=== PATIENT | male | born 1980 | race Caucasian/White ===

== ENCOUNTER → 2020-01-30 15:29 | Outpatient (BNVA) | payer BC, SELFPAY | PROVIDERS: PCP Internal Medicine; Referring Provider Internal Medicine; Visit Provider Surgery | DX: Z76.89 Persons encountering health services in other specified circumstances (principal) ==

== ENCOUNTER 2020-02-26 07:22 | Outpatient (REF) | payer BC, SELFPAY ==
[2020-02-26 08:35] LABS: MANUAL DIFF FLAG NO
[2020-02-26 08:38] LABS: Basophils Percent Auto 0.7 % (0-2); Eosinophils Absolute Auto 0.2 X10*3/uL (0.0-0.4); Eosinophils Percent Auto 3.3 % (0-4); Hematocrit 47.9 % (42-52); Imm Gran Abs Auto 0.01 X10*3/uL (0.00-0.03); Imm Gran Pct Auto 0.2 % (0.0-0.4); Lymphocytes Absolute Auto 2.3 X10*3/uL (1.2-4.9); Lymphocytes Percent Auto 37.5 % (20-40); Mean Corpuscular HGB Conc 33.4 g/dl (31.0-36.0); Mean Corpuscular Volume 83.7 fL (80-98); Mean Platelet Volume 9.9 fL (9.4-12.4); Monocytes Absolute Auto 0.4 X10*3/uL (0.1-1.2); Monocytes Percent Auto 7.1 % (2-11); Neutrophils Absolute Auto 3.1 X10*3/uL (2.0-8.3); Neutrophils Percent Auto 51.2 % (45-73); Platelet Count 161 X10*3/uL (160-400); Red Blood Count 5.72 X10*6/uL (4.60-5.80); Red Cell Distribution Width 13.7 % (11.0-16.0); White Blood Count 6.1 X10*3/uL (4.8-10.8)
[2020-02-26 09:06] LABS: Alanine Aminotransferase 19 U/L (0-40); Albumin Level 4.4 g/dL (3.5-5.0); Alkaline Phosphatase 66 U/L (39-117); Anion Gap 11 (12-20); Aspartate Amino Transferase 19 U/L (5-37); Bilirubin Total 0.7 mg/dL (0.0-1.0); Blood Urea Nitrogen 18 mg/dL (9-16); C Reactive Protein 0.17 mg/dL (< or = 0.50); Calcium 9.1 mg/dL (8.4-10.2); Carbon Dioxide 30 mmol/L (22-29); Chloride 104 mmol/L (96-108); Cholesterol 214 mg/dL; Estimated Glomerular Filt Rate > 60; Glucose Fasting 82 mg/dL (60-99); HDL Cholesterol 52 mg/dL; Iron 89 mcg/dL (45-160); LDL Cholesterol Calculated 149 mg/dl; Percent Iron Saturation 28 % (15-50); Potassium 4.2 mmol/l (3.3-5.1); Sodium 141 mmol/L (135-145); Total Iron Binding Capacity 315 mcg/dL (228-428); Total Protein 7.2 g/dL (6.5-8.0); Triglycerides 68 mg/dL; Unsaturated Iron Binding 226 ug/dL
[2020-02-26 09:19] LABS: Vitamin B12 318 pg/mL (200-900)
[2020-02-26 09:29] LABS: Thyroid Stimulating Hormone 1.54 uIU/mL (0.32-4.0); Vitamin D 25-OH Total 19.4 ng/mL (>30)
[2020-02-29 06:43] LABS: Zinc 76 mcg/dL (60-130)
[2020-03-01 07:47] LABS: Vitamin B1 11 nmol/L (8-30)
[2020-03-01 22:23] LABS: Vitamin A 50 mcg/dL (38-98)
== END 2020-02-26 07:23 | disposition home or self-care (01) ==
LOC: HO.LAB 07:22
PROVIDERS: PCP Internal Medicine; Visit Provider Surgery
DX: Z01.818 Encounter for other preprocedural examination (principal); K90.9 Intestinal malabsorption, unspecified
CPT/HCPCS: 36415; 80048; 80053; 80061; 82306; 82607; 83540; 84425; 84443; 84590; 84630; 85025; 86140

== ENCOUNTER → 2020-03-01 09:45 | Outpatient (BNVA) | payer BC, SELFPAY | PROVIDERS: PCP Internal Medicine; Visit Provider Surgery | DX: Z76.89 Persons encountering health services in other specified circumstances (principal) ==

== ENCOUNTER → 2020-04-05 11:13 | Outpatient (BNVA) | payer BC, SELFPAY | PROVIDERS: PCP Internal Medicine; Visit Provider Surgery ==

== ENCOUNTER 2024-01-07 13:09 | Outpatient (AMB) | payer BC, SELFPAY ==
--- NOTE | 2024-01-07 13:13 | A.OFFPC_ITS ---
Vital Signs 01/07/24 13:24 Height 6 ft Weight 326 lb 8 oz BMI 44.3 BP 112/78 Blood Pressure Location Lt brachial Position Sitting Pulse 80 Pulse Source Pulse Oximeter Pulse Oximetry (%) 97 Oxygen Delivery Method Room Air Intake Visit Reasons: [facility] - [facility] Intake Note: New patient visit Allergies No Known Allergies [No Known Allergies*] Allergy (Verified 01/07/24 13:15) Tobacco use date assessed: 01/07/24 Dental Screening Dental Screen Date: 01/07/24 Did you have a dental visit in the last 12 months?: Yes Did you have a dental problem in the last 6 months where you did not have access to dental care?: No Was dental information given to patient?: No HPI HPI Comments History of Present Illness Details Patient is a 43-year-old male history of LINDSAY on CPAP, obesity, history of sleeve gastrectomy, psoriasis, arthritis presenting to [facility]. He transferred from [facility] s/p sleeve gastrectomy 2018. Down to 220 then regained weight. LINDSAY:Previously was using cpap. Symptoms subsided substantially after sleeve gastrectomy, symptoms do not seem to have recurred with his weight gain MSK: History of joint pain. Symptoms lessened following weight loss Would consider colonoscopy at 44. ROS CONSTITUTIONAL: Denies weight loss, fever and chills. HEENT: Denies changes in vision and hearing. RESPIRATORY: Denies SOB and cough. CV: Denies palpitations and CP GI: Denies abdominal pain, nausea, vomiting and diarrhea. : Denies dysuria and urinary frequency. MSK: Denies new myalgia and joint pain. SKIN: Denies rash and pruritus. NEUROLOGICAL: Denies headache PSYCHIATRIC: Denies recent changes in mood. PHYSICAL EXAM: GENERAL: Alert and oriented x 3. NAD EYES: EOMI. Anicteric. HENT: Moist mucous membranes. No scleral icterus. No cervical lymphadenopathy. LUNGS: Clear to auscultation bilaterally. CARDIOVASCULAR: Regular rate and rhythm. No murmur. No JVD. ABDOMEN: Soft, non-tender +bs EXTREMITIES: No edema. Non-tender. SKIN: No rashes or lesions. Warm. NEUROLOGIC: No focal neurological deficits. CN II-XII grossly intact PSYCHIATRIC: Cooperative. Appropriate mood and affect [facility] Medical History (Updated 01/07/24 @ 13:42 by Cyn Smith MD) Psoriasis Arthritis Obstructive sleep apnea on CPAP Surgical History History of sleeve gastrectomy Hx of lipoma Family History (Updated 01/07/24 @ 13:19 by Rachel Cruz CMA) Father Agoraphobia FH: mental illness Mother Metastatic lung cancer (metastasis from lung to other site) Smoker Alcoholism Sister Sleep apnea Son Asthma Son ADD (attention deficit disorder) Paternal Uncle Schizophrenia Maternal Uncle Alcoholism Other Substance abuse Social History (Updated 04/05/20 @ 12:23 by Elba Owen MD) Housing: House Alcohol intake: never Patient Tobacco Use Status: Former Tobacco user Cigarette Packs Per Day: 2 Years Smoked: 0 Packs Per Year: 0 e-Cigarette/Vaping Use: Never Used Second Hand Smoke Exposure: No service: Yes Current occupational status: employed 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 1. Little interest or pleasure in doing things: several days 2. Feeling down, depressed, or hopeless: not at all 3. Trouble falling or staying asleep, or sleeping too much: several days 4. Feeling tired or having little energy: several days 5. Poor appetite or overeating: more than half the days 6. Feeling bad about yourself - or that you are a failure or have let yourself or your family down: not at all 7. Trouble concentrating on things, such as reading the newspaper or watching television: several days 8. Moving or speaking so slowly that other people could have noticed. Or the opposite - being so fidgety or restless that you have been moving around a lot more than usual: not at all 9. Thoughts that you would be better off or of hurting yourself in some way: not at all Total score: 6 Source: Developed by Drs. Gerald Diamond, Clotilde Park, Eren Slade and colleagues, with an educational jodi from [employer]. Thrive Questionnaire I am a: Patient What is your living situation today?: I have a steady place to live Within the past 12 months, did the food you bought not last and you didn't have the money to get more?: Never true Within the past 12 months, did you worry whether your food would run out before you got money to buy more?: Never true Do you have trouble paying for medicines?: No Do you have trouble getting transportation to medical appointments?: No Do you have trouble paying your heating and electricity bill?: No Do you have trouble taking care of your child, family member or friend?: No Do you have trouble with day-to-day activities such as bathing, preparing meals, shopping, managing finances, etc.?: No Are you currently unemployed and looking for a job?: No Are you interested in more education?: I choose not to answer this question Please select the resources that you would like help with: None Currently or been in a relationship where the following occur: No concerns reported THRIVE Score: 0 AUDIT C Alcohol Use Questionnaire (AUDIT-C) 1. How often do you have a drink containing alcohol?: Never Total Score: 0 HELLEN-7 AMB Questionnaire HELLEN-7 Feeling nervous, anxious, or on edge: 0 = Not at all Not being able to stop or control worryin = Not at all Worrying too much about different things: 0 = Not at all Trouble relaxin = Not at all Being so restless that it is hard to sit still: 0 = Not at all Becoming easily annoyed or irritable: 0 = Not at all Feeling afraid as if something awful might happen: 0 = Not at all Total HELLEN-7 score (0-4 normal; 5-9 mild; 10-14 moderate; 15-21 severe): 0 Source: Developed by Drs. Gerald Diamond, Clotilde Park, Eren Slade and colleagues, with an educational jodi from [employer]. Physical exam (Primary Care) Vital Signs: Last Vital Signs Pulse 80 01/07/24 13:24 BP 112/78 01/07/24 13:24 Pulse Ox 97 01/07/24 13:24 Oxygen Delivery Method Room Air 01/07/24 13:24 BMI result Body Mass Index 44.3 Tobacco/Smoking Status: Tobacco use Status Tobacco use date assessed 01/07/24 01/07/24 13:21 Patient Tobacco Use Status Former Tobacco user 01/07/24 13:21 e-Cigarette/Vaping Use Never Used 01/07/24 13:21 PHQ-9: PHQ-9 Score PHQ-9: Total score 6 01/07/24 13:21 Currently or been in a relationship where the following occur: No concerns reported Coding Level of Care Code New Pt Level 4 (85801) Diagnoses Encounter to establish care Z76.89 Obstructive sleep apnea on CPAP G47.33; Z99.89 Psoriasis L40.9 Assessment & Plan Assessment & Plan (1) Encounter to establish care: Code(s): Z76.89 - Persons encountering health services in other specified circumstances Category: Medical Plan: 43 year old male presenting to establish care. Past medical, surgical, social and family history reviewed. chart updated (2) Obstructive sleep apnea on CPAP: Code(s): G47.33 - Obstructive sleep apnea (adult) (pediatric); Z99.89 - Dependence on other enabling machines and devices Category: Medical Plan: declines referral at present (3) Psoriasis: Code(s): L40.9 - Psoriasis, unspecified Category: Medical Plan: quite at present Orders: Orders Hemoglobin A1c Today Z13.0 - Encounter for screening for diseases of the blood and blood-forming organs and certain disorders involving the immune mechanism, Z13.220 - Encounter for screening for lipoid disorders, Z13.228 - Encounter for screening for other metabolic disorders, Z68.41 - Body mass index [BMI] 40.0- 44.9, adult TSH reflex Free T4 Today Z13.0 - Encounter for screening for diseases of the blood and blood-forming organs and certain disorders involving the immune mechanism, Z13.220 - Encounter for screening for lipoid disorders, Z13.228 - Encounter for screening for other metabolic disorders, Z68.41 - Body mass index [BMI] 40.0-44.9, adult Complete Blood Count Auto Diff Today Z13.0 - Encounter for screening for diseases of the blood and blood-forming organs and certain disorders involving the immune mechanism, Z13.220 - Encounter for screening for lipoid disorders, Z13.228 - Encounter for screening for other metabolic disorders, Z68.41 - Body mass index [BMI] 40.0-44.9, adult Comprehensive Met. Panel Today Z13.0 - Encounter for screening for diseases of the blood and blood-forming organs and certain disorders involving the immune mechanism, Z13.220 - Encounter for screening for lipoid disorders, Z13.228 - Encounter for screening for other metabolic disorders, Z68.41 - Body mass index [BMI] 40.0-44.9, adult Vitamin B12 and Folate Today Z13.0 - Encounter for screening for diseases of the blood and blood-forming organs and certain disorders involving the immune mechanism, Z13.220 - Encounter for screening for lipoid disorders, Z13.228 - Encounter for screening for other metabolic disorders, Z68.41 - Body mass index [BMI] 40.0-44.9, adult Lipid Panel Today Z13.0 - Encounter for screening for diseases of the blood and blood-forming organs and certain disorders involving the immune mechanism, Z13.220 - Encounter for screening for lipoid disorders, Z13.228 - Encounter for screening for other metabolic disorders, Z68.41 - Body mass index [BMI] 40.0- 44.9, adult Referrals Open Access Screening Colonoscopy Referral Z12.11 - Encounter for screening for malignant neoplasm of colon, Z12.12 - Encounter for screening for malignant neoplasm of rectum Medications: New Mounjaro (tirzepatide) for 4 weeks 2.5 mg (0.5 mL) subcut QWEEK 2 mL 0RF NS Z68.41 - Body mass index [BMI] 40.0-44.9, adult
[2024-01-07 13:24] VITALS: BP 112/78; PULSE 80; O2SAT 97; BMI 44.3
== END 2024-01-07 13:51 | disposition home or self-care (01) ==
PROVIDERS: PCP Internal Medicine; Visit Provider Internal Medicine
DX: Z76.89 Persons encountering health services in other specified circumstances (principal); G47.33 Obstructive sleep apnea (adult) (pediatric); Z99.89 Dependence on other enabling machines and devices; L40.9 Psoriasis, unspecified

== ENCOUNTER → 2024-01-07 13:09 | Outpatient (BNVA) | payer BC, SELFPAY | PROVIDERS: PCP Internal Medicine; Visit Provider Internal Medicine ==

== ENCOUNTER 2024-01-07 13:57 | Outpatient (REF) | payer BC, SELFPAY ==
[2024-01-07 17:42] LABS: MANUAL DIFF FLAG NO
[2024-01-07 18:06] LABS: Estimated Average Glucose 108 mg/dL; Hemoglobin A1C 145.8401 umol/L; Hemoglobin A1c % 5.4 % (<6.0); Total Hemoglobin (HGBA1C) 4050.7412 umol/L
[2024-01-07 18:07] LABS: Basophils Percent Auto 0.5 % (0-2); Eosinophils Absolute Auto 0.2 X10*3/uL (0.0-0.4); Eosinophils Percent Auto 2.3 % (0-4); Hematocrit 48.4 % (42.0-52.0); Hemoglobin 16.3 g/dl (14.0-18.0); Imm Gran Abs Auto 0.02 X10*3/uL (0.00-0.03); Imm Gran Pct Auto 0.3 % (0.0-0.4); Lymphocytes Absolute Auto 2.1 X10*3/uL (1.2-4.9); Lymphocytes Percent Auto 28.6 % (20-40); Mean Corpuscular HGB Conc 33.7 g/dl (31.0-36.0); Mean Corpuscular Hemoglobin 26.8 pg (27.0-33.0); Mean Corpuscular Volume 79.6 fL (80.0-98.0); Mean Platelet Volume 9.5 fL (9.4-12.4); Monocytes Absolute Auto 0.6 X10*3/uL (0.1-1.2); Monocytes Percent Auto 7.7 % (2-11); Neutrophils Absolute Auto 4.4 x10*3/uL (2.0-8.3); Neutrophils Percent Auto 60.6 % (45-73); Platelet Count 208 X10*3/uL (160-400); Red Blood Count 6.08 X10*6/uL (4.60-5.80); Red Cell Distribution Width 14.7 % (11.0-16.0); White Blood Count 7.3 X10*3/uL (4.8-10.8)
[2024-01-07 18:18] LABS: Alanine Aminotransferase 55 U/L (0-40); Albumin Level 4.2 g/dL (3.5-5.0); Alkaline Phosphatase 87 U/L (39-117); Anion Gap 11 (12-20); Aspartate Amino Transferase 40 U/L (5-37); Bilirubin Total 0.9 mg/dL (0.0-1.0); Blood Urea Nitrogen 14 mg/dL (9-16); Calcium 9.6 mg/dL (8.4-10.2); Carbon Dioxide 27 mmol/L (22-29); Chloride 103 mmol/L (96-108); Cholesterol 249 mg/dL (<200); Estimated Glomerular Filt Rate > 60; Glucose Random 93 mg/dL (60-115); HDL Cholesterol 39 mg/dL (>40); LDL Cholesterol Calculated 183 mg/dL (<100); Potassium 3.8 mmol/L (3.3-5.1); Sodium 137 mmol/L (135-145); Total Protein 7.5 g/dL (6.5-8.0); Triglycerides 137 mg/dL (<150)
[2024-01-07 18:27] LABS: TSH reflex Free T4 2.13 uIU/mL (0.32-4.0)
[2024-01-07 18:44] LABS: Folate 4.8 ng/mL (> or = 4.0); Vitamin B12 271 pg/mL (200-900)
== END 2024-01-07 13:58 | disposition home or self-care (01) ==
LOC: HO.WFDLDS 13:57
PROVIDERS: Visit Provider Internal Medicine
DX: Z13.0 Encounter for screening for diseases of the blood and blood-forming organs and certain disorders involving the immune mechanism (principal); Z13.228 Encounter for screening for other metabolic disorders; Z13.220 Encounter for screening for lipoid disorders; Z13.1 Encounter for screening for diabetes mellitus; Z68.41 Body mass index [BMI] 40.0-44.9, adult
CPT/HCPCS: 36415; 80053; 80061; 82607; 82746; 83036; 84443; 85025

== ENCOUNTER 2024-09-26 13:00 | Outpatient (AMB) | payer BC, SELFPAY ==
--- NOTE | 2024-09-26 13:01 | A.OFFPC_ITS ---
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 Allergies No Known Allergies (No Known Allergies*) Allergy (Verified 09/26/24 13:24) Medication List - Last Reconciled 09/26/24 by JOSEPH Sears-BC Mounjaro (tirzepatide) 2.5 mg (0.5 mL) subcut QWEEK NS Tobacco use date assessed: 09/26/24 Dental Screening Dental Screen Date: 09/26/24 Did you have a dental visit in the last 12 months?: Yes Did you have a dental problem in the last 6 months where you did not have access to dental care?: No Was dental information given to patient?: Patient has dentist HPI HPI Comments History of Present Illness Details 44-year-old male with LINDSAY on CPAP, obesi ty, history of sleeve gastrectomy, psoriasis, arthritis, elevated LFT, HLD Health Maintenance Tdap declined [place] [facility] [place] [facility] Optho glasses, routine exams History of Present Illness - The patient is a 44-year-old male pres enting for a wellness visit. - Past obesity management includes prior gastric sleeve surgery. GLP 1 denied by insurance. - Reports obstructive sleep apnea manage d by CPAP in the past but currently not in use. - December labs confirmed hyperlipidemia and elevated liver function tests. - Psoriasis and psoriatic arthritis were previously controlled with weight loss but have recurred with weight regain. - Having ED sx: Patient reports diminis hed sexual function and desire, potentially related to weight gain. Past Surgical History - Sleep gastrectomy Family History - No family medical history changes repo rted. Social History - The patient works overnight, contribut ing to irregular sleep patterns. - Expresses intentions to manage weight and improve health, with plans to re- engage with bariatric support after the summer. - Reports that family appointments have been coordinated by his . Health Maintenance - Discussed referral for Open Access Col onoscopy Screening starting at age 45. - Offered update for tetanus vaccination , which the patient declined. - Encouraged weight management and provi ded referral for medical weight management. - Discussed potential for updating labs if pursuing weight management program. - Discussed options for managing erectil e dysfunction. Review of Systems - Constitutional: Reports fatigue relate d to overnight work schedule. - Dermatological: Reports recurrence of psoriasis. - Musculoskeletal: Reports recurrence of psoriatic arthritis symptoms. c/o occasional swelling BLE related to lack of sleep and poor diet. - Cardiovascular: Denies cardiac conditi ons. - Genitourinary: Reports diminished sexu al function. - Neurological: Denies routine wear of C PAP machine for sleep apnea, currently not in use. - Gastrointestinal: Reports regular marilyn l movements. Physical Exam General: Well developed, well nourished, in no acute distress. Appears stated age. Head: Normocephalic, atraumatic. Eyes: Pupils are equal, round and reactive to light and accommodation. Conjunctivae are clear. Vision grossly normal. Ears: TMs clear AU, EACS WNL Nose: Patent, without discharge. Neck: Supple, no adenopathy or thyromegaly. Breast: Edu on SBE Lungs: Clear to auscultation bilaterally. No rales, rhonchi or wheeze noted. Good air flow in all james. Heart: Regular rate and rhythm. No murmurs, click, rubs or gallops are noted. Abdomen: Bowel sounds present in all quadrants. The abdomen is soft, nontender, with no masses or organomegaly noted. No hernias are noted. : Deferred. Reviewed NORBERTO & recommendations Pulses: Peripheral pulses are equal and palpable bilaterally. Extremities: No clubbing, cyanosis nor edema is noted. Varicose veins noted Neurologic: Gait and station normal. Cranial Nerves 2-12 intact. Motor strength grossly symmetrical and intact. No sensory loss. Balance normal. Skin: No rashes, ulcers, or lesions noted. Turgor is good. Skin color is good. Hair and nails are without abnormalities. Psych: Normal eye contact, affect and mood appropriate, and normal interactions. Patient is alert and appropriate to context. Results - Labs: December 2023 results indicated hyperlipidemia and elevated liver function tests. Discussion Notes I met with the patient today to discuss his wellness examination and chronic health issues, including obesity, hyperlipidemia, and obstructive sleep apnea. He was informed about the necessity for a colonoscopy screening starting at age 45, and a referral was provided. The risks and benefits of updating laboratory values were discussed, especially in the context of managing his weight. Options for addressing diminished sexual function with Viagra or Cialis and methods to ensure cost-effectiveness with GoodRx were reviewed, and he was counseled on risks such as potential blood pressure changes. The importance of a tetanus vaccination was mentioned, but he opted to decline. We reinforced the importance of weight management, linking this to his psoriatic symptoms and metabolic parameters. Patient was given time to ask questions. All questions were answered to their satisfaction. Assessment and Plan 1. Obesity - Referral to weight management. 2. Hyperlipidemia - Reassess with labs - Wt Mgmt referral 3. Obstructive Sleep Apnea - Patient remains informed on CPAP utili ty; Declined. 4. Elevated Liver Function Tests - Monitor - Wt Mgmt 5. Psoriasis and Psoriatic Arthritis - Weight management emphasis for symptom control. - Declined referral to Derm 6. Erectile Dysfunction - Trial prescribed viagra dosage for sex ual function. 25-50mg PRN If no effect, refer to Uro. Check T levels today, too Declined Tdap Patient Instructions - You may receive a call to schedule you r colonoscopy; follow up if not contacted in two weeks. - Consider using the [employer] daniel to offse t Viagra costs. - Discussed continuing with current slee p apnea management or revisiting sleep studies once weight is managed. - Continue monitoring skin conditions; s [place] dermatological or weight management support. - Stay informed about potential changes in health coverage concerning Flipunjaro. - Check the patient portal for lab updat es and visit future appointments as discussed. - RTO 6 mo with PCP for routine mgmt, so jillian PRN Consent Patient was informed and verbally consented to the use of an ambient scribe for clinic note documentation during this visit. An additional 20 minutes was spent addressing the problem(s) noted at todays visit. This includes time spent before the visit reviewing the chart, time spent during the visit, and time spent after the visit on documentation reviewing laboratory results, diagnostic imaging, medications, performing a medically necessary evaluation, counseling on diagnoses, care coordination, ordering appropriate tests, ordering appropriate medications, review of tests performed by other providers, reporting test results with the patient, communication with other healthcare providers. [facility] Medical History (Updated 09/26/24 @ 13:57 by Eliana Cavanaugh, JOSEPH-DEEPTHI) Arthritis Obstructive sleep apnea on CPAP Psoriasis Surgical History History of sleeve gastrectomy Hx of lipoma Family History (Updated 01/07/24 @ 13:19 by Rachel Cruz CMA) Father Agoraphobia FH: mental illness Mother Metastatic lung cancer (metastasis from lung to other site) Smoker Alcoholism Sister Sleep apnea Son Asthma Son ADD (attention deficit disorder) Paternal Uncle Schizophrenia Maternal Uncle Alcoholism Other Substance abuse Social History (Updated 04/05/20 @ 12:23 by Elba Owen MD) Housing: House Alcohol intake: never Patient Tobacco Use Status: Former Tobacco user Cigarette Packs Per Day: 2 Years Smoked: 0 e-Cigarette/Vaping Use: Never Used Second Hand Smoke Exposure: No service: Yes Current occupational status: employed Current occupation: [employer] Current occupational exposures/hazards: No Cognitive needs: No Hearing needs: No Vision needs: Yes (glasses ) Questionnaire PHQ-9 Over the last 2 weeks, how often have you been bothered by any of the following problems? 1. Little interest or pleasure in doing things: not at all 2. Feeling down, depressed, or hopeless: not at all 3. Trouble falling or staying asleep, or sleeping too much: not at all 4. Feeling tired or having little energy: not at all 5. Poor appetite or overeating: not at all 6. Feeling bad about yourself - or that you are a failure or have let yourself or your family down: not at all 7. Trouble concentrating on things, such as reading the newspaper or watching television: not at all 8. Moving or speaking so slowly that other people could have noticed. Or the opposite - being so fidgety or restless that you have been moving around a lot more than usual: not at all 9. Thoughts that you would be better off or of hurting yourself in some way : not at all Total score: 0 Depression Screening Interpretation: Negative Depression Screening Done: Yes 48078 - PHQ-9 Billing: Yes Source: Developed by Drs. Gerald Diamond, Clotilde Park, Eren Slade and colleagues, with an educational jodi from [employer]. Thrive Questionnaire Date Thrive assessed: 09/26/24 I am a: Patient What is your living situation today?: I have a steady place to live Within the past 12 months, did the food you bought not last and you didn't have the money to get more?: Never true Within the past 12 months, did you worry whether your food would run out before you got money to buy more?: Never true Do you have trouble paying for medicines?: No Do you have trouble getting transportation to medical appointments?: No Do you have trouble paying your heating and electricity bill?: No Do you have trouble taking care of your child, family member or friend?: No Do you have trouble with day-to-day activities such as bathing, preparing meals, shopping, managing finances, etc.?: No Are you currently unemployed and looking for a job?: No Are you interested in more education?: No Please select the resources that you would like help with: None Currently or been in a relationship where the following occur: No concerns reported THRIVE Score: 0 AUDIT C Alcohol Use Questionnaire (AUDIT-C) 1. How often do you have a drink containing alcohol?: Never 3. How often do you have six or more drinks on one occasion?: Never Total Score: 0 Score Reviewed/Action Taken: Yes HELLEN-7 AMB Questionnaire HELLEN-7 Date HELLEN - 7 assessed: 09/26/24 Feeling nervous, anxious, or on edge: 0 = Not at all Not being able to stop or control worryin = Not at all Worrying too much about different things: 0 = Not at all Trouble relaxin = Not at all Being so restless that it is hard to sit still: 0 = Not at all Becoming easily annoyed or irritable: 0 = Not at all Feeling afraid as if something awful might happen: 0 = Not at all Total HELLEN-7 score (0-4 normal; 5-9 mild; 10-14 moderate; 15-21 severe): 0 Source: Developed by Drs. Gerald Diamond, Clotilde Park, Eren Slade and colleagues, with an educational jodi from [employer]. HELLEN-7 Assessment Billing HELLEN-7 Assessment Tool: HELLEN-7 Assessment 63334 Physical exam (Primary Care) Vital Signs: Last Vital Signs Temp 97.2 F 09/26/24 13:04 Pulse 76 09/26/24 13:04 Resp 12 09/26/24 13:04 BP 115/70 09/26/24 13:04 Pulse Ox 98 09/26/24 13:04 Oxygen Delivery Method Room Air 09/26/24 13:04 BMI result Body Mass Index 42.9 BMI Assessment/Plan discussion: High BMI High, discussed plan: lifestyle Tobacco/Smoking Status: Tobacco use Status Tobacco use date assessed 09/26/24 09/26/24 13:06 Patient Tobacco Use Status Former Tobacco user 09/26/24 13:06 e-Cigarette/Vaping Use Never Used 09/26/24 13:06 PHQ-9: PHQ-9 Score PHQ-9: Total score 0 09/26/24 13:06 Depression Screening Interpretation: Negative Thrive Assessment: Date of Thrive Assessment Date Thrive assessed 09/26/24 09/26/24 13:06 Currently or been in a relationship where the following occur: No concerns reported Coding Level of Care Code Est Pt Level 3 (72841) Est Pt Prev Care 40-64y(29006) Diagnoses Encounter for general adult medical examination without abnormal findings Z00.00 History of sleeve gastrectomy Z90.3 Body mass index (BMI) of 40.1 to 44.9 in adult Z68.41 Obstructive sleep apnea on CPAP G47.33; Z99.89 Mixed hyperlipidemia E78.2 Hyperlipidemia type: mixed hyperlipidemia Elevated LFTs R79.89 Tetanus, diphtheria, and acellular pertussis (Tdap) vaccination declined Z28.21 Psoriasis L40.9 Laboratory exam ordered as part of routine general medical examination Z00.00 Vasculogenic erectile dysfunction, unspecified vasculogenic erectile dysfunction type N52.9 Erectile dysfunction type: vasculogenic Vasculogenic erectile dysfunction type: unspecified Venous insufficiency I87.2 Additional Codes HELLEN-7 Assessment Billing - HELLEN-7 Assessment Tool: HELLEN-7 Assessment 26986 ([id number]) PHQ-9 - 97023 - PHQ-9 Billing: Yes ([id number]) Assessment & Plan Assessment & Plan (1) Encounter for general adult medical examination without abnormal findings: Onset Date: ~09/26/24 Code(s): Z00.00 - Encounter for general adult medical examination without abnormal findings Category: Medical (2) History of sleeve gastrectomy: Comment: 12/21/2018 Code(s): Z90.3 - Acquired absence of stomach [part of] Category: Medical (3) Body mass index (BMI) of 40.1 to 44.9 in adult: Code(s): Z68.41 - Body mass index [BMI] 40.0-44.9, adult Category: Medical (4) Obstructive sleep apnea on CPAP: Comment: not wearing CPAP; stopped using after wt loss His goal is to lose weight and not need machine Bariatrics referral open Code(s): G47.33 - Obstructive sleep apnea (adult) (pediatric); Z99.89 - Dependence on other enabling machines and devices Category: Medical (5) HLD (hyperlipidemia): Code(s): E78.5 - Hyperlipidemia, unspecified Category: Medical Qualifiers: Hyperlipidemia type: mixed hyperlipidemia Qualified Code(s): E78.2 - Mixed hyperlipidemia (6) Elevated LFTs: Code(s): R79.89 - Other specified abnormal findings of blood chemistry Category: Medical (7) Tetanus, diphtheria, and acellular pertussis (Tdap) vaccination declined: Code(s): Z28.21 - Immunization not carried out because of patient refusal Category: Medical (8) Psoriasis: Code(s): L40.9 - Psoriasis, unspecified Category: Medical (9) Laboratory exam ordered as part of routine general medical examination: Code(s): Z00.00 - Encounter for general adult medical examination without abnormal findings Category: Medical (10) Erectile dysfunction: Code(s): N52.9 - Male erectile dysfunction, unspecified Category: Medical Qualifiers: Erectile dysfunction type: vasculogenic Vasculogenic erectile dysfunction type: unspecified Qualified Code(s): N52.9 - Male erectile dysfunction, unspecified (11) Venous insufficiency: Code(s): I87.2 - Venous insufficiency (chronic) (peripheral) Category: Medical Plan . Orders: Orders Prostate Specific Antigen Scr Today E78.2 - Mixed hyperlipidemia, N52.9 - Male erectile dysfunction, unspecified, Z00.00 - Encounter for general adult medical examination without abnormal findings Comprehensive Met. Panel Today E78.2 - Mixed hyperlipidemia, N52.9 - Male erectile dysfunction, unspecified, Z00.00 - Encounter for general adult medical examination without abnormal findings Lipid Panel Today E78.2 - Mixed hyperlipidemia, N52.9 - Male erectile dysfunction, unspecified, Z00.00 - Encounter for general adult medical examination without abnormal findings Testosterone, Free/Total Today E78.2 - Mixed hyperlipidemia, N52.9 - Male erectile dysfunction, unspecified, Z00.00 - Encounter for general adult medical examination without abnormal findings Referrals Medical Weight Management Referral Z68.41 - Body mass index [BMI] 40.0-44.9, adult, Z90.3 - Acquired absence of stomach [part of] Medications: New sildenafil (Viagra) administer 30 minutes to 4 hours before activity 50 mg PO DAILY PRN 90 tabs 2RF sexual activity Discontinued Mounjaro (tirzepatide) for 4 weeks Discontinued Reason: Insurance Denied 2.5 mg (0.5 mL) subcut QWEEK 2 mL 0RF NS Z68.41 - Body mass index [BMI] 40.0-44.9, adult Patient Instructions: HEALTH SCREENINGS FOR MEN YOU SHOULD VISIT YOUR HEALTH CARE PROVIDER REGULARLY, EVEN IF YOU FEEL HEALTHY. THE PURPOSE OF THESE VISITS IS TO: SCREEN FOR MEDICAL ISSUES ASSESS YOUR RISK FOR FUTURE MEDICAL PROBLEMS ENCOURAGE A HEALTHY LIFESTYLE UPDATE VACCINATIONS AND OTHER PREVENTIVE CARE SERVICES HELP YOU GET TO KNOW YOUR PROVIDER IN CASE OF AN ILLNESS INFORMATION EVEN IF YOU FEEL FINE, YOU SHOULD STILL SEE YOUR PROVIDER FOR REGULAR CHECKUPS. THESE VISITS CAN HELP YOU AVOID PROBLEMS IN THE FUTURE. FOR EXAMPLE, THE ONLY WAY TO FIND OUT IF YOU HAVE HIGH BLOOD PRESSURE IS TO HAVE IT CHECKED REGULARLY. HIGH BLOOD SUGAR AND HIGH CHOLESTEROL LEVEL ALSO MAY NOT HAVE ANY SYMPTOMS IN THE EARLY STAGES. SIMPLE BLOOD TESTS CAN CHECK FOR THESE CONDITIONS. THERE ARE SPECIFIC TIMES WHEN YOU SHOULD SEE YOUR PROVIDER OR RECEIVE SPECIFIC HEALTH SCREENINGS. THE [place] [employer]VENT[employer] PUBLISHES A LIST OF RECOMMENDED SCREENINGS. BELOW ARE SCREENING GUIDELINES FOR MEN AGES 40 TO 64. BLOOD PRESSURE SCREENING HAVE YOUR BLOOD PRESSURE CHECKED AT LEAST ONCE EVERY YEAR. WATCH FOR BLOOD PRESSURE SCREENINGS IN YOUR AREA. ASK YOUR PROVIDER IF YOU CAN STOP IN TO HAVE YOUR BLOOD PRESSURE CHECKED. ASK YOUR PROVIDER IF YOU NEED YOUR BLOOD PRESSURE CHECKED MORE OFTEN IF: YOU HAVE DIABETES, HEART DISEASE, KIDNEY PROBLEMS, OR ARE OVERWEIGHT OR HAVE CERTAIN OTHER HEALTH CONDITIONS YOU HAVE A FIRST-DEGREE RELATIVE WITH HIGH BLOOD PRESSURE YOU ARE BLACK YOUR BLOOD PRESSURE TOP NUMBER IS FROM 120 TO 129 MM HG, OR THE BOTTOM NUMBER IS FROM 70 TO 79 MM HG IF THE TOP NUMBER IS 130 MM HG OR GREATER OR THE BOTTOM NUMBER IS 80 MM HG OR GREATER, THIS IS CONSIDERED STAGE 1 HYPERTENSION. SCHEDULE AN APPOINTMENT WITH YOUR PROVIDER TO LEARN HOW YOU CAN LOWER YOUR BLOOD PRESSURE. EFFECTS OF AGE ON BLOOD PRESSURE CHOLESTEROL SCREENING CHOLESTEROL SCREENING SHOULD BEGIN AT AGE 35 FOR MEN WITH NO KNOWN RISK FACTORS FOR CORONARY HEART DISEASE. REPEAT CHOLESTEROL SCREENING SHOULD TAKE PLACE: EVERY 5 YEARS FOR MEN WITH NORMAL CHOLESTEROL LEVELS MORE OFTEN IF CHANGES OCCUR IN LIFESTYLE (INCLUDING WEIGHT GAIN AND DIET) MORE OFTEN IF YOU HAVE DIABETES, HEART DISEASE, KIDNEY PROBLEMS, OR CERTAIN OTHER CONDITIONS COLORECTAL CANCER SCREENING IF YOU ARE UNDER AGE 45, TALK TO YOUR PROVIDER ABOUT GETTING SCREENED. YOU MAY NEED TO BE SCREENED IF YOU HAVE A STRONG FAMILY HISTORY OF COLON CANCER OR POLYPS. SCREENING MAY ALSO BE CONSIDERED IF YOU HAVE RISK FACTORS SUCH A HISTORY OF INFLAMMATORY BOWEL DISEASE OR POLYPS. IF YOU ARE AGE 45 TO 75, YOU SHOULD BE SCREENED FOR COLORECTAL CANCER. THERE ARE SEVERAL SCREENING TESTS AVAILABLE: A STOOL-BASED FECAL OCCULT BLOOD (GFOBT) OR FECAL IMMUNOCHEMICAL TEST (FIT) EVERY YEAR A STOOL SDNA TEST EVERY 1 TO 3 YEARS FLEXIBLE SIGMOIDOSCOPY EVERY 5 YEARS OR EVERY 10 YEARS WITH STOOL TESTING FIT DONE EVERY YEAR CT COLONOGRAPHY (VIRTUAL COLONOSCOPY) EVERY 5 YEARS COLONOSCOPY EVERY 10 YEARS YOU MAY NEED A COLONOSCOPY MORE OFTEN IF YOU HAVE RISK FACTORS FOR COLORECTAL CANCER, SUCH : ULCERATIVE COLITIS A PERSONAL OR FAMILY HISTORY OF COLORECTAL CANCER A HISTORY OF GROWTHS IN YOUR COLON CALLED ADENOMATOUS POLYPS DENTAL EXAM GO TO THE DENTIST ONCE OR TWICE EVERY YEAR FOR AN EXAM AND CLEANING. YOUR DENTIST WILL EVALUATE IF YOU HAVE A NEED FOR MORE FREQUENT VISITS. DIABETES SCREENING ALL ADULTS WHO DO NOT HAVE RISK FACTORS FOR DIABETES SHOULD BE SCREENED STARTING AT AGE 35 AND REPEATED EVERY 3 YEARS. IF YOU HAVE OTHER RISK FACTORS FOR DIABETES, SUCH A FIRST DEGREE RELATIVE WITH DIABETES, OVERWEIGHT OR OBESITY, HIGH BLOOD PRESSURE, PREDIABETES, OR A HISTORY OF HEART DISEASE, YOU MAY BE TESTED MORE OFTEN. IF YOU ARE OVERWEIGHT AND HAVE OTHER RISK FACTORS, SUCH HIGH BLOOD PRESSURE AND ARE PLANNING TO BECOME , SCREENING IS RECOMMENDED. EYE EXAM HAVE AN EYE EXAM EVERY 2 TO 4 YEARS AGES 40 TO 54 AND EVERY 1 TO 3 YEARS AGES 55 TO 64. YOUR PROVIDER MAY RECOMMEND MORE FREQUENT EYE EXAMS IF YOU HAVE VISION PROBLEMS OR GLAUCOMA RISK. HAVE AN EYE EXAM THAT INCLUDES AN EXAMINATION OF YOUR RETINA (BACK OF YOUR EYE) AT LEAST EVERY YEAR IF YOU HAVE DIABETES. IMMUNIZATIONS COMMONLY NEEDED VACCINES INCLUDE: FLU SHOT: GET ONE EVERY YEAR COVID-19 VACCINE: ASK YOUR PROVIDER WHAT IS BEST FOR YOU TETANUS-DIPHTHERIA AND ACELLULAR PERTUSSIS (TDAP) VACCINE: HAVE ONE OF YOUR TETANUS-DIPHTHERIA VACCINES IF YOU DID NOT RECEIVE IT AN ADOLESCENT TETANUS-DIPHTHERIA: HAVE A BOOSTER (OR TDAP) EVERY 10 YEARS VARICELLA VACCINE: RECEIVE 2 DOSES IF YOU NEVER HAD CHICKENPOX OR THE VARICELLA VACCINE AND WERE BORN IN 1980 OR AFTER HEPATITIS B VACCINE: RECEIVE 2, 3, OR 4 DOSES, DEPENDING ON YOUR EXACT CIRCUMSTANCES, IF YOU DID NOT RECEIVE THESE A CHILD OR ADOLESCENT, UNTIL AGE 59 SHINGLES (HERPES ZOSTER) VACCINE: AT OR AFTER AGE 50 ASK YOUR PROVIDER IF YOU SHOULD RECEIVE OTHER IMMUNIZATIONS, ESPECIALLY IF YOU HAVE CERTAIN MEDICAL CONDITIONS, SUCH DIABETES OR ARE AT INCREASED RISK FOR SOME DISEASES SUCH PNEUMONIA. INFECTIOUS DISEASE SCREENING SCREENING FOR HEPATITIS C: ALL ADULTS AGES 18 TO 79 SHOULD GET A ONE-TIME TEST FOR HEPATITIS C. SCREENING FOR HUMAN IMMUNODEFICIENCY VIRUS (HIV): ALL PEOPLE AGES 15 TO 65 SHOULD GET A ONE-TIME TEST FOR HIV. DEPENDING ON YOUR LIFESTYLE AND MEDICAL HISTORY, YOU MAY NEED TO BE SCREENED FOR INFECTIONS SUCH SYPHILIS, CHLAMYDIA, AND OTHER INFECTIONS. LUNG CANCER SCREENING YOU SHOULD HAVE AN ANNUAL SCREENING FOR LUNG CANCER WITH LOW-DOSE COMPUTED TOMOGRAPHY (LDCT) IF: YOU ARE AGE 50 TO 80 YEARS AND YOU HAVE A 20 PACK-YEAR SMOKING HISTORY AND YOU CURRENTLY SMOKE OR HAVE QUIT WITHIN THE PAST 15 YEARS OSTEOPOROSIS SCREENING IF YOU ARE AGE 50 TO 64 AND HAVE RISK FACTORS FOR OSTEOPOROSIS, YOU SHOULD DISCUSS SCREENING WITH YOUR PROVIDER. RISK FACTORS CAN INCLUDE LONG-TERM STEROID USE, LOW BODY WEIGHT, SMOKING, HEAVY ALCOHOL USE, HAVING A FRACTURE AFTER AGE 50, OR A FAMILY HISTORY OF HIP FRACTURE OR OSTEOPOROSIS. OSTEOPOROSIS PHYSICAL EXAM ALL ADULTS SHOULD VISIT THEIR PROVIDER FROM TIME TO TIME, EVEN IF THEY ARE HEALTHY. THE PURPOSE OF THESE VISITS IS TO: SCREEN FOR DISEASES ASSESS RISK OF FUTURE MEDICAL PROBLEMS ENCOURAGE A HEALTHY LIFESTYLE UPDATE VACCINATIONS AND OTHER PREVENTIVE CARE SERVICES MAINTAIN A RELATIONSHIP WITH A PROVIDER IN CASE OF AN ILLNESS YOUR HEIGHT, WEIGHT, AND BODY MASS INDEX (BMI) SHOULD BE CHECKED AT EVERY EXAM. DURING YOUR EXAM, YOUR PROVIDER MAY ASK YOU ABOUT: DEPRESSION AND ANXIETY DIET AND EXERCISE ALCOHOL AND TOBACCO USE SAFETY, SUCH USE OF SEAT BELTS AND SMOKE DETECTORS YOUR MEDICINES AND RISK FOR INTERACTIONS PROSTATE CANCER SCREENING IF YOU'RE 55 THROUGH 69 YEARS OLD, BEFORE HAVING THE TEST, TALK TO YOUR PROVIDER ABOUT THE PROS AND CONS OF HAVING A PSA TEST. ASK ABOUT: WHETHER SCREENING DECREASES YOUR CHANCE OF DYING FROM PROSTATE CANCER. WHETHER THERE IS ANY HARM FROM PROSTATE CANCER SCREENING, SUCH SIDE EFFECTS FROM TESTING OR OVERTREATMENT OF CANCER WHEN DISCOVERED. WHETHER YOU HAVE A HIGHER RISK OF PROSTATE CANCER THAN OTHERS. IF YOU ARE AGE 55 OR YOUNGER, SCREENING IS NOT GENERALLY RECOMMENDED. YOU SHOULD TALK WITH YOUR PROVIDER ABOUT IF YOU HAVE A HIGHER RISK FOR PROSTATE CANCER. RISK FACTORS INCLUDE: HAVING A FAMILY HISTORY OF PROSTATE CANCER (ESPECIALLY A BROTHER OR FATHER) BEING IF YOU CHOOSE TO BE TESTED, THE PSA BLOOD TEST IS REPEATED OVER TIME (YEARLY OR LESS OFTEN), THOUGH THE BEST FREQUENCY IS NOT KNOWN. PROSTATE EXAMINATIONS ARE NO LONGER ROUTINELY DONE ON MEN WITH NO SYMPTOMS. PROSTATE CANCER SKIN EXAM YOUR PROVIDER MAY CHECK YOUR SKIN FOR SIGNS OF SKIN CANCER, ESPECIALLY IF YOU'RE AT HIGH RISK. PEOPLE AT HIGH RISK INCLUDE THOSE WHO HAVE HAD SKIN CANCER BEFORE, HAVE CLOSE RELATIVES WITH SKIN CANCER, OR HAVE A WEAKENED IMMUNE SYSTEM. TESTICULAR EXAM THE US PREVENTIVE [employer] ([facility]) NOW RECOMMENDS AGAINST PERFORMING TESTICULAR SELF-EXAMS. DOING TESTICULAR SELF-EXAMS HAS BEEN SHOWN TO HAVE LITTLE TO NO BENEFIT.
[2024-09-26 13:04] VITALS: BP 115/70; PULSE 76; RESP 12; TEMP 36.2; O2SAT 98; BMI 42.9
--- OUTSIDE RECORDS SUMMARY | 2024-09-26 13:48 | XMS_ITS ---
Author Name [facility] Organization Unknown Care Team Organization Name Specialty Phone Email Start Date End [facility] Termed, PROVIDER Primary Care 12/23/202109/15
== END 2024-09-26 13:49 | disposition home or self-care (01) ==
LOC: HO.HMCFM 13:01
PROVIDERS: PCP Internal Medicine; Visit Provider Nurse Practitioner Family
DX: Z00.00 Encounter for general adult medical examination without abnormal findings (principal); G47.33 Obstructive sleep apnea (adult) (pediatric); E78.2 Mixed hyperlipidemia; Z90.3 Acquired absence of stomach [part of]; Z68.41 Body mass index [BMI] 40.0-44.9, adult; Z99.89 Dependence on other enabling machines and devices; R79.89 Other specified abnormal findings of blood chemistry; Z28.21 Immunization not carried out because of patient refusal; L40.9 Psoriasis, unspecified; N52.9 Male erectile dysfunction, unspecified; I87.2 Venous insufficiency (chronic) (peripheral)

== ENCOUNTER 2024-09-26 13:00 | Outpatient (REF) | payer BC, SELFPAY ==
[2024-09-26 18:37] LABS: Alanine Aminotransferase 49 U/L (0-40); Albumin Level 4.3 g/dL (3.5-5.0); Alkaline Phosphatase 87 U/L (39-117); Anion Gap 11 (12-20); Aspartate Amino Transferase 42 U/L (5-37); Blood Urea Nitrogen 16 mg/dL (9-16); Calcium 9.2 mg/dL (8.4-10.2); Carbon Dioxide 27 mmol/L (22-29); Chloride 109 mmol/L (96-108); Cholesterol 213 mg/dL (<200); Estimated Glomerular Filt Rate > 60; HDL Cholesterol 38 mg/dL (>40); Potassium 3.9 mmol/L (3.3-5.1); Sodium 143 mmol/L (135-145); Total Protein 7.2 g/dL (6.5-8.0); Triglycerides 124 mg/dL (<150)
== END 2024-09-26 13:01 | disposition home or self-care (01) ==
LOC: HO.WFDLDS 13:00
PROVIDERS: PCP Internal Medicine; Visit Provider Nurse Practitioner Family
DX: Z00.00 Encounter for general adult medical examination without abnormal findings (principal); Z12.5 Encounter for screening for malignant neoplasm of prostate; Z90.3 Acquired absence of stomach [part of]; G47.33 Obstructive sleep apnea (adult) (pediatric); Z99.89 Dependence on other enabling machines and devices; E78.2 Mixed hyperlipidemia; R79.89 Other specified abnormal findings of blood chemistry; N52.9 Male erectile dysfunction, unspecified; I87.2 Venous insufficiency (chronic) (peripheral)
CPT/HCPCS: 36415; 80053; 80061; 84153; 84402; 84403; 96127

== ENCOUNTER 2024-12-13 08:10 | Outpatient (AMB) | payer BC, SELFPAY ==
--- NOTE | 2024-12-13 12:46 | MHC.OFFVISWM ---
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 BMI 41.6: Details: Start time: 12.40pm, End time: 1.20pm ?I spent 35 minutes speaking with the patient on the phone plus an additional 5 minutes reviewing and updating records for a total of 40 minutes HPI Comments Details: Previous weight loss efforts: LSG (pre-LSG weight: 285lbs, lowest: 212lbs) Works overnight, sleeps: 6.30am to 2pm Breakfast: 4pm (breakfast sandwich, cheese with crackers) Lunch: 8pm (meat, pasta, rice) Dinner: 12am (sandwich, pizza) Snacks: 3 snacks after midnight (cheese sticks, [place] bars, crackers), snacks between other meals (crackers, pretzels) Exercise: Has treadmill (inclines and tracks calories) Beverages: Coffee: none, Tea: none, Soda: Diet Pepsi (2lt/d), Juice: rarely, ETOH: none PFSH Medical History (Updated 12/13/24 @ 13:13 by Jameson Cabrera MD) Postgastrectomy malabsorption GERD (gastroesophageal reflux disease) Psoriasis Arthritis Obstructive sleep apnea on CPAP Surgical History (Updated 11/09/24 @ 08:10 by Ghazala Fontanez [facility]) Hx of wisdom tooth extraction History of sleeve gastrectomy Hx of lipoma Family History (Updated 01/07/24 @ 13:19 by Rachel Cruz CMA) Father Agoraphobia FH: mental illness Mother Metastatic lung cancer (metastasis from lung to other site) Smoker Alcoholism Sister Sleep apnea Son Asthma Son ADD (attention deficit disorder) Paternal Uncle Schizophrenia Maternal Uncle Alcoholism Other Substance abuse Social History (Updated 04/05/20 @ 12:23 by Elba Owen MD) Housing: House Alcohol intake: never Patient Tobacco Use Status: Former Tobacco user Cigarette Packs Per Day: 2 Years Smoked: 0 e-Cigarette/Vaping Use: Never Used Second Hand Smoke Exposure: No service: Yes Current occupational status: employed 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 Current occupational exposures/hazards: No Cognitive needs: No Hearing needs: No Vision needs: Yes (glasses ) Telehealth Telehealth Telehealth Platform: Telephone Location of provider rendering services: practice address Location of patient: address on file Patient Identification confirmed using: Name, : Yes Telehealth method: voice only Patient verbally consented to treatment: Yes Patient verbally consented to billing insurance company: Yes Patient informed of any privacy concerns related to visit: Yes Minutes spent on Phone/Video with Pt.: 40 Assessment & Plan Assessment & Plan (1) GERD (gastroesophageal reflux disease): Code(s): K21.9 - Gastro-esophageal reflux disease without esophagitis Category: Medical Qualifiers: Esophagitis presence: esophagitis presence not specified Qualified Code(s): K21.9 - Gastro-esophageal reflux disease without esophagitis Plan: 1. To be scheduled for EGD with Valle to assess the stomach's and sleeve's anatomy. The possibility of biopsies was discussed. Patient needs to avoid use of NSAIDs and aspirin for 1 week prior to EGD. You must be on liquids only the day before your endoscopy. Risks of perforation and bleeding was discussed with the patient. This will be an outpatient procedure with IV sedation. 2. The patient had severe sleep apnea and has not been using his CPAP. A home sleep study was ordered. 3. Please do the blood work I recommended fasting overnight Orders: Orders TSH reflex Free T4 Today K91.2 - Postsurgical malabsorption, not elsewhere classified, Z90.3 - Acquired absence of stomach [part of] Complete Blood Count Auto Diff Today K91.2 - Postsurgical malabsorption, not elsewhere classified, Z90.3 - Acquired absence of stomach [part of] Ferritin Today K91.2 - Postsurgical malabsorption, not elsewhere classified, Z90.3 - Acquired absence of stomach [part of] Vitamin B1 Today K91.2 - Postsurgical malabsorption, not elsewhere classified, Z90.3 - Acquired absence of stomach [part of] Vitamin B12 and Folate Today K91.2 - Postsurgical malabsorption, not elsewhere classified, Z90.3 - Acquired absence of stomach [part of] Vitamin D 25-OH Total Today K91.2 - Postsurgical malabsorption, not elsewhere classified, Z90.3 - Acquired absence of stomach [part of] Vitamin A Today K91.2 - Postsurgical malabsorption, not elsewhere classified, Z90.3 - Acquired absence of stomach [part of] Zinc Today K91.2 - Postsurgical malabsorption, not elsewhere classified, Z90.3 - Acquired absence of stomach [part of] IRON PROFILE Today K91.2 - Postsurgical malabsorption, not elsewhere classified, Z90.3 - Acquired absence of stomach [part of] RT home sleep study Today G47.33 - Obstructive sleep apnea (adult) (pediatric), Z99.89 - Dependence on other enabling machines and devices C Reactive Protein Today K91.2 - Postsurgical malabsorption, not elsewhere classified, Z90.3 - Acquired absence of stomach [part of] Comprehensive Met. Panel Today K91.2 - Postsurgical malabsorption, not elsewhere classified, Z90.3 - Acquired absence of stomach [part of] Insulin Today K91.2 - Postsurgical malabsorption, not elsewhere classified, Z90.3 - Acquired absence of stomach [part of] Lipid Panel Today K91.2 - Postsurgical malabsorption, not elsewhere classified, Z90.3 - Acquired absence of stomach [part of] Hemoglobin A1c Today K91.2 - Postsurgical malabsorption, not elsewhere classified, Z90.3 - Acquired absence of stomach [part of]
== END 2024-12-13 13:21 | disposition home or self-care (01) ==
LOC: HO.HBS 08:10
PROVIDERS: PCP Internal Medicine; Visit Provider Surgery
DX: K21.9 Gastro-esophageal reflux disease without esophagitis (principal)
CPT/HCPCS: 99204

== ENCOUNTER 2024-12-18 06:54 | Outpatient (REF) | payer BC, SELFPAY ==
[2024-12-18 07:22] LABS: MANUAL DIFF FLAG NO
[2024-12-18 07:53] LABS: Hematocrit 46.1 % (42.0-52.0); Hemoglobin 15.2 g/dl (14.0-18.0); Imm Gran Abs Auto 0.02 X10*3/uL (0.00-0.03); Imm Gran Pct Auto 0.3 % (0.0-0.4); Lymphocytes Absolute Auto 2.5 X10*3/uL (1.2-4.9); Mean Corpuscular HGB Conc 33.0 g/dl (31.0-36.0); Mean Corpuscular Hemoglobin 26.3 pg (27.0-33.0); Mean Corpuscular Volume 79.8 fL (80.0-98.0); NRBC Abs Auto 0.000 X10*3/uL (0.0-0.012); NRBC Pct Auto 0.0 /100WBC (0.0-0.2); Platelet Count 182 X10*3/uL (160-400); Red Blood Count 5.78 X10*6/uL (4.60-5.80); White Blood Count 8.0 X10*3/uL (4.8-10.8)
[2024-12-18 08:25] LABS: Alanine Aminotransferase 37 U/L (0-40); Albumin Level 4.3 g/dL (3.5-5.0); Alkaline Phosphatase 87 U/L (39-117); Anion Gap 11 (12-20); Aspartate Amino Transferase 31 U/L (5-37); Blood Urea Nitrogen 15 mg/dL (9-16); Calcium 8.7 mg/dL (8.4-10.2); Carbon Dioxide 24 mmol/L (22-29); Chloride 106 mmol/L (96-108); Cholesterol 204 mg/dL (<200); Estimated Glomerular Filt Rate > 60; HDL Cholesterol 36 mg/dL (>40); Iron 56 mcg/dL (45-160); Percent Iron Saturation 20 % (15-50); Potassium 3.3 mmol/L (3.3-5.1); Sodium 138 mmol/L (135-145); Total Iron Binding Capacity 277 mcg/dL (228-428); Total Protein 7.1 g/dL (6.5-8.0); Triglycerides 98 mg/dL (<150); Unsaturated Iron Binding 221 ug/dL
[2024-12-18 08:46] LABS: Ferritin 119 ng/mL (20-250)
[2024-12-18 09:05] LABS: Folate 5.0 ng/mL (> or = 4.0); Vitamin B12 262 pg/mL (200-900)
== END 2024-12-18 06:55 | disposition home or self-care (01) ==
LOC: HO.LAB 06:54
PROVIDERS: PCP Internal Medicine; Visit Provider Surgery
DX: Z13.29 Encounter for screening for other suspected endocrine disorder (principal); K91.2 Postsurgical malabsorption, not elsewhere classified; Z90.3 Acquired absence of stomach [part of]
CPT/HCPCS: 36415; 80053; 80061; 82306; 82607; 82728; 82746; 83036; 83525; 83540; 84425; 84443; 84590; 84630; 85025; 86140

== ENCOUNTER 2024-12-19 08:23 | Day surgery (SDC) | payer BC, SELFPAY ==
--- NOTE | 2024-12-18 08:57 | P.CONAN_ITS ---
Documented by User: Dana Leon NP 12/18/24 08:57 HPI - Anesthesia Eval Consult details Narrative: 44yo M for Upper Endo Valle PMFSH Active Problems Active Problems: All Active Problems Postgastrectomy malabsorption (Acute) GERD (gastroesophageal reflux disease) (Acute) Venous insufficiency (Acute) Erectile dysfunction (Acute) Laboratory exam ordered as part of routine general medical examination (Acute) Tetanus, diphtheria, and acellular pertussis (Tdap) vaccination declined (Acute) Elevated LFTs (Acute) HLD (hyperlipidemia) (Acute) Encounter for general adult medical examination without abnormal findings (Acute ~09/26/24) Screening for hyperlipidemia (Acute) Screening for metabolic disorder (Acute) Screening, deficiency anemia, iron (Acute) Body mass index (BMI) of 40.1 to 44.9 in adult (Acute) Obstructive sleep apnea on CPAP (Acute) Psoriasis (Acute) Encounter to establish care (Acute) BMI 35.0-35.9,adult (Acute) Vitamin D deficiency (Acute) Body mass index (BMI) of 34.0-34.9 in adult (Acute) Obesity (BMI 30-39.9) (Acute) History of sleeve gastrectomy (Acute) Intestinal malabsorption (Acute) Past Medical History Medical History Postgastrectomy malabsorption GERD (gastroesophageal reflux disease) Psoriasis Arthritis Obstructive sleep apnea on CPAP Family History Family History Father Agoraphobia FH: mental illness Mother Metastatic lung cancer (metastasis from lung to other site) Smoker Alcoholism Sister Sleep apnea Son Asthma Son ADD (attention deficit disorder) Paternal Uncle Schizophrenia Maternal Uncle Alcoholism Other Substance abuse Surgical History Surgical History Hx of wisdom tooth extraction History of sleeve gastrectomy Hx of lipoma Social History Social History Housing: House Alcohol intake: never Patient Tobacco Use Status: Former Tobacco user Cigarette Packs Per Day: 2 Years Smoked: 0 e-Cigarette/Vaping Use: Never Used Second Hand Smoke Exposure: No Use of substances other than those prescribed or required for medical reasons: No Advance Directives: No Advance Directives Information Provided: Yes service: Yes Current occupational status: employed 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 Current occupational exposures/hazards: No Cognitive needs: No Hearing needs: No Vision needs: Yes (glasses ) Meds Allergies Allergy/AdvReac Type Severity Reaction Status Date / Time No Known Allergies (No Known Allergy Verified 12/13/24 12:46 Allergies*) Assessment and Plan Assessment Anesthesia Assessment: Chart Reviewed Documented by User: Gali Chau MD 12/19/24 10:56 PMFSH Past Medical History Medical History Postgastrectomy malabsorption GERD (gastroesophageal reflux disease) Psoriasis Arthritis Obstructive sleep apnea on CPAP Family History Family History Father Agoraphobia FH: mental illness Mother Metastatic lung cancer (metastasis from lung to other site) Smoker Alcoholism Sister Sleep apnea Son Asthma Son ADD (attention deficit disorder) Paternal Uncle Schizophrenia Maternal Uncle Alcoholism Other Substance abuse Surgical History Surgical History Hx of wisdom tooth extraction History of sleeve gastrectomy Hx of lipoma History of Problems with Anesthesia: No Social History Social History Housing: House Alcohol intake: never Patient Tobacco Use Status: Former Tobacco user Cigarette Packs Per Day: 2 Years Smoked: 0 e-Cigarette/Vaping Use: Never Used Second Hand Smoke Exposure: No Use of substances other than those prescribed or required for medical reasons: No Advance Directives: No Advance Directives Information Provided: Yes service: Yes Current occupational status: employed 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 Current occupational exposures/hazards: No Cognitive needs: No Hearing needs: No Vision needs: Yes (glasses ) Meds Allergies Allergy/AdvReac Type Severity Reaction Status Date / Time No Known Allergies (No Known Allergy Verified 12/13/24 12:46 Allergies*) Exam Airway Mallampati Class: III (full torres) TM Dist: >3cm Neck ROM: Full Loose/Missing/Broken Teeth: No Heart: RRR Lungs: CTA Assessment and Plan Assessment Anesthesia Assessment: Anesthesia Plan Discussed Final Anesthetic Review History of Problems with Anesthesia: No NPO: Yes ASA Class: III Final Preanesthetic Review: Meds/Allgs Chart Reviewed, Consent Obtained/Reviewed and Anes Risks/Benef Reviewed Patient Risk: Intermediate Procedure Risk: Intermediate Anesthetic Plan Anesthetic Plan: MAC: Disposition: Standard PACU
[2024-12-19 10:07] VITALS: BMI 41.3
[2024-12-19 10:18] VITALS: BP 141/84; PULSE 70; RESP 16; TEMP 36.2; O2SAT 96
--- NOTE | 2024-12-19 10:53 | MHC.SHP ---
Pre-Procedural Eval Section A - 24 Hr Update-Section A only Date of Service: 12/19/24 The patient is an INPATIENT: No The patient has been examined within 24 hours of the surgical procedure. The History & Physical has been completed within 30 days and I have reviewed it.: No Section B - Complete if H&P > 30 days Chief Complaint: gerd Relevant Family History (Specify if Yes): No Relevant Social History: None Present Medications: None Medical History: No relevant PMH History of Previous Operations: Relevant previous surgery/procedure and date(s) (Laparoscopic sleeve gastrectomy) Allergies: Allergies Allergy/AdvReac Type Severity Reaction Status Date / Time No Known Allergies (No Known Allergy Verified 12/13/24 12:46 Allergies*) Review of Systems Sugical H&P ROS: Negative: Constitution, Cardiovascular, Respiratory, Neurological, Psychiatric, Hem-Onc, Allergic/Immunologic, Gastrointestinal, Genitourinary, Musculoskeletal, Integumentary, Endocrine and Eyes/Ears/Nose/Throat Exam Surgical H&P Exam: Normal: HEENT, Normal: Heart, Normal: Lungs, Normal: Extremities, Normal: Abdomen, Normal: Skin and Normal: Neurological Plan Diagnosis/Plan: Unchanged (EGD with Valle to assess etiology of GERD. Risks of bleeding and perforation were discussed with the patient and he is in agreement with the plan.) I have reviewed the history and physical and performed a pertinent physical examination on my patient. No changes have occurred unless specified. Time Spent With Patient Time: Total time managing care of this patient today ____ minutes.
--- NOTE | 2024-12-19 10:54 | P.BOP_ITS ---
Brief Operative Note Date of Service: 12/19/24 Pre-op diagnosis: GERD, s/p sleeve gastrectomy Post-op diagnosis: same Procedure: PROCEDURE DATE: 12/19/2024 PREOPERATIVE DIAGNOSIS: GERD POSTOPERATIVE DIAGNOSIS: ?Same as above. 1) Redundant proximal sleeve, 2) antral gastritis PROCEDURE: [id number] with biopsies and Valle procedure Surgeon: ?Ashutosh Cabrera M.D.. Ph.D. Clinical Informatics Physician: None ? Anesthesia: IV sedation Estimated blood loss: ?Minimal FINDINGS AND PROCEDURE: ? OPERATIVE INDICATIONS: ?The patient is a 44 year old male who was referred to me for persistent GERD after sleeve gastrectomy done elsewhere. Based on this information I recommended an upper endoscopy with the Valle procedure to evaluate the patient's symptoms and assess her GERD. Risks and complications of the surgery were discussed with the patient in advance particularly the possibility of perforation or bleeding that may require surgical intervention. The patient understood the risks and was in agreement with the plan. ? PROCEDURE: After informed consent was obtained by the patient, the patient was ?transferred to the Operating Room and was placed in the supine position.? After successful induction of IV sedation, a mouth block was inserted and the patient was placed in the left lateral decubitus position. An upper endoscopy was performed next, the oropharynx and esophagus appeared within the normal limits. There was no significant hiatal hernia. The z-line was smooth. Two biopsies were obtained from the distal esophagus 2-3 cm proximal to the GE junction and two additional biopsies from the GE junction. The stomach was entered. there was significant redundancy at the proximal sleeve. The remaining of the sleeve had a normal caliber throughout. There was mild gastritis at distal antrum. There was no stricture or ulcer. A biopsy was obtained from the distal antrum. No significant bleeding was noted from any of the biopsy sites. The scope was then advanced into the duodenum which appeared to be normal as well. At that point the duodenum ?and the stomach were decompressed and the scope was withdrawn to the GE junction. We measured 6 cm proximal from the GEJ and that was about 34cm from incisors. The scope was withdrawn from the mouth and the Valle device was introduced to 34cm from incisors. Suction was kept for 45 seconds and the device was deployed. The scope was re-introduced to confirm that the probe was in the esophagus and it was. The scope was withdrawn from the patient's mouth. Suction was connected to the device and was kept on for 45sec. At that point the device was deployed without difficulty and the remaining of the device was withdrawn from the patient's mouth without difficulty. The endoscope was re-introduced and I confirmed that the device was properly deployed in the esophagus at the intended location. At that point the scope was withdrawn from the patient's mouth and the procedure was ended. The patient extubated and was transferred in stable condition to the Recovery Room for further care. I was present and performed all steps of the procedure. There were no residents to assist with this case. Ashutosh Cabrera M.D., Ph.D. Surgeon: Jameson Cabrera MD Anesthesia: MAC Was an Clinical Informatics Physician used for this Procedure?: No Estimated blood loss (mL): 0 IV fluids (mL): 400 Urine output (mL): 0 (No Mcmahon to record output) Pathology: other (1) antrum x1, 2) fundus x1, 3) GE junction x2, 4) distal esophagus x2) Condition: stable Disposition: PACU
[2024-12-19 11:30] VITALS: BP 125/80; PULSE 86; RESP 18; TEMP 36.6; O2SAT 97
[2024-12-19 11:45] VITALS: BP 119/71; PULSE 77; RESP 18; O2SAT 97
[2024-12-19 12:00] VITALS: BP 123/79; PULSE 76; RESP 12; TEMP 36.6; O2SAT 95
== END 2024-12-19 12:26 | disposition home or self-care (01) ==
PROVIDERS: PCP Internal Medicine; Visit Provider Surgery
PROC: (CPT 43239; principal; 2024-12-19 11:00)
DX: K21.9 Gastro-esophageal reflux disease without esophagitis (principal); K91.2 Postsurgical malabsorption, not elsewhere classified; L98.7 Excessive and redundant skin and subcutaneous tissue; Z90.3 Acquired absence of stomach [part of]; K29.50 Unspecified chronic gastritis without bleeding; Z98.84 Bariatric surgery status; L40.9 Psoriasis, unspecified; M19.90 Unspecified osteoarthritis, unspecified site; G47.33 Obstructive sleep apnea (adult) (pediatric); Z79.899 Other long term (current) drug therapy; Z99.89 Dependence on other enabling machines and devices; Z87.891 Personal history of nicotine dependence
CPT/HCPCS: 43239; 88305; 88342; J2003; J2704

== ENCOUNTER → 2024-12-19 08:23 | Outpatient (BNV) | payer BC, SELFPAY | PROVIDERS: PCP Internal Medicine; Visit Provider Surgery | DX: K21.9 Gastro-esophageal reflux disease without esophagitis (principal); K29.50 Unspecified chronic gastritis without bleeding | CPT/HCPCS: 43239; 91035 ==

== ENCOUNTER → 2025-01-29 13:51 | Outpatient (REF) | payer BC, SELFPAY | LOC: HO.SL 13:51 | PROVIDERS: PCP Internal Medicine; Visit Provider Surgery | DX: G47.33 Obstructive sleep apnea (adult) (pediatric) (principal); Z99.89 Dependence on other enabling machines and devices | CPT/HCPCS: 95806 ==

== ENCOUNTER → 2025-01-29 14:01 | Outpatient (BNV) | payer BC, SELFPAY | PROVIDERS: PCP Internal Medicine; Visit Provider Psychiatry & Neurology Neurology | DX: R06.83 Snoring (principal) | CPT/HCPCS: 95806 ==